=== PATIENT | male | born 1960 | race African-American/Black ===

== ENCOUNTER 2022-01-05 02:03 | Emergency (ER) | payer MEDICARE, OTHER ==
[~2022-01-05] VITALS: Ht 182.9 cm; Wt 86.4 kg
[2022-01-05] MEDS ORDERED: EPOE10I SQ (02:14)
[2022-01-05] MEDS ORDERED: SENN1TAB72 PO (02:15)
[2022-01-05] MEDS ORDERED: IPRA4AER IH (02:16)
[2022-01-05] MEDS ORDERED: HYDR4TAB4 PO (02:16)
[2022-01-05] MEDS ORDERED: TUBE5VIA ID (02:19)
[2022-01-05] MEDS ORDERED: FOLI0.8T22 PO (02:19)
[2022-01-05] MEDS ORDERED: POLY17PO PO (02:20)
[2022-01-05] MEDS ORDERED: APIX2.5T PO (02:21)
[2022-01-05] MEDS ORDERED: [UNRECOGNIZED DRUG - CODE] PO (02:23)
[2022-01-05] MEDS ORDERED: ATOR40TA71 PO (02:23)
[2022-01-05] MEDS ORDERED: OS500 PO (02:24)
[2022-01-05] MEDS ORDERED: GABA-1216 PO (02:25)
[2022-01-05] MEDS ORDERED: LACT10SO32 PO (02:25)
[2022-01-05] MEDS ORDERED: ACET-784 PO (02:26)
[2022-01-05] MEDS ORDERED: BISA10SU61 PR (02:27)
[2022-01-05 03:25] LABS: BASOPHILS % (AUTO) 0.9 % (0.0-2.0); EOSINOPHILS % (AUTO) 3.9 % (1.0-6.0); HEMATOCRIT 27.5 % (41-53); HEMOGLOBIN 8.7 g/dL (13.5-17.5); LYMPHOCYTES # (AUTO) 1.3 K/uL (1.0-4.8); LYMPHOCYTES % (AUTO) 17.9 % (22.0-44.0); MEAN CORPUSCULAR HEMOGLOBIN 31.3 pg (26.0-34.0); MEAN CORPUSCULAR HGB CONC 31.6 G/dL (31.0-37.0); MEAN CORPUSCULAR VOLUME 99 fL (80-100); MONOCYTES # (AUTO) 0.9 K/uL (0.1-1.0); NEUTROPHILS # (AUTO) 4.8 K/uL (1.8-7.7); NEUTROPHILS % (AUTO) 65.3 % (40.0-70.0); PLATELET COUNT (AUTO) 246 K/uL (150-450); RED BLOOD CELL COUNT(AUTO) 2.77 MIL/uL (4.50-5.90)
[2022-01-05 03:28] LABS: CALCIUM, TOTAL 7.1 mg/dL (8.8-10.5); CREATININE 5.83 mg/dL (0.60-1.30); POTASSIUM 5.2 mmol/L (3.5-5.1)
[2022-01-05 03:34] LABS: ALBUMIN 2.6 g/dL (3.4-5.0); BILIRUBIN,TOTAL 0.5 mg/dL (0.1-1.0); TOTAL PROTEIN, SERUM 7.3 g/dL (6.4-8.2)
[2022-01-05 04:08] LABS: INR 1.2 (0.9-1.1); PROTHROMBIN TIME 11.9 SEC (9.4-11.6)
[2022-01-05 04:57] VITALS: BP 102/53
== END 2022-01-05 06:47 | disposition left against medical advice (07) ==
LOC: EMS 02:06
DX: I95.9 Hypotension, unspecified (principal); I25.10 Atherosclerotic heart disease of native coronary artery without angina pectoris; E78.00 Pure hypercholesterolemia, unspecified; I48.91 Unspecified atrial fibrillation; N17.8 Other acute kidney failure; I73.9 Peripheral vascular disease, unspecified; Z91.040 Latex allergy status; Z88.8 Allergy status to other drugs, medicaments and biological substances; Z88.5 Allergy status to narcotic agent; Z92.89 Personal history of other medical treatment; Z95.0 Presence of cardiac pacemaker; Z98.890 Other specified postprocedural states
CPT/HCPCS: 71045; 80053; 82550; 83880; 84484; 85025; 85610; 85730; 93005; 99283; 99284; 99285